=== PATIENT | female | born 2000 | race Two or more races ===

== ENCOUNTER 2022-06-09 00:43 | Emergency (ER) | payer OTHER ==
[~2022-06-09] VITALS: Ht 160 cm; Wt 49.9 kg
[2022-06-09] MEDS ORDERED: DICLOFENAC POTA50 MG PO (02:52)
[2022-06-09] MEDS ORDERED: INTESTINEX680 M1 PO (02:52)
[2022-06-09] MEDS ORDERED: AMOX1TAB5 PO (02:52)
== END 2022-06-09 03:02 | disposition home or self-care (01) ==
LOC: ER 00:43
DX: K08.89 Other specified disorders of teeth and supporting structures (principal)